=== PATIENT | male | born 1950 | race Caucasian/White ===

== ENCOUNTER → 2016-12-26 | Outpatient (CLI) | payer BC | END | disposition home or self-care (01) | LOC: P/T 09:53 | PROVIDERS: ATTEND Specialist | DX: M51.37 Other intervertebral disc degeneration, lumbosacral region (principal) | CPT/HCPCS: 97163 ==

== ENCOUNTER → 2017-01-19 | Outpatient (CLI) | payer BC ==
--- NOTE | 2017-01-19 15:35 | RADRPT ---
PROCEDURE: XR Abdomen. CLINICAL INDICATION: History of urinary tract calculus. TECHNIQUE: AP supine abdomen x-ray. COMPARISON: None. FINDINGS: The bowel gas pattern is normal with no evidence of obstruction. Surgical clips are present in the left lower chest and there are sternal wires. There is a 0.4 cm calcification overlying the region of the distal left ureter. There are no other a bnormal calcifications overlying the urinary tracts. There are degenerative changes of the lower lumbar spine. IMPRESSION: 1. Prior median sternotomy. 2. Calcification measuring 0.4 cm overlying the region of the distal left ureter. This may be a vas cular calcification or a ureteral calculus. Correlation with CT scan should be considered. 3. Degenerative changes of the lower lumbar spine. RPTAT: QQ .Arun Prince MD, Date Time Electronically viewed and signed by .Arun Prince MD, on 01/19/2017 15:35 .R/
== END | disposition home or self-care (01) ==
LOC: RAD 13:33
PROVIDERS: ATTEND Emergency Medicine
DX: N20.0 Calculus of kidney (principal)
CPT/HCPCS: 74000